=== PATIENT | female | born 1960 | race Caucasian/White ===

== ENCOUNTER 2023-06-03 21:32 | Inpatient (IN) | payer OTHER ==
[~2023-06-03 21:32] MED LIST: Iopamidol-370 76% 500 ML MDV (1 ML CHARGE) ONE
[2023-06-03 22:32] LABS: #Monocytes 1.2 thou/uL (0.11-0.59); #Neutrophils 13.5 thou/uL (1.40-6.50); %Basophils 0.2 % (0.0-1.0); %Eosinophils 0.2 % (0.0-10.0); %Lymphocytes 9.8 % (21.0-51.0); %Monocytes 7.3 % (0.0-10.0); Hematocrit 36.8 % (36.0-47.0); Hemoglobin 11.1 g/dL (12.0-16.0); Mean Corpuscular HGB CONC 30.2 g/dL (32.0-36.0); Mean Corpuscular Hemoglobin 29.4 pg (27.0-31.0); Mean Corpuscular Volume 97.6 fl (78.0-98.0); Mean Platelet Volume 9.5 fL (7.4-10.4); Platelet Count 251 10x3/uL (130-400); RBC Distribution Width 14.5 % (11.5-14.5); Red Blood Cell (RBC) Count 3.77 mill/uL (4.20-5.40); White Blood Cell (WBC) Count 16.5 10x3/uL (4.8-10.8)
[2023-06-03 22:54] LABS: ALT (SGPT) Less than 7 U/L (8-55); AST (SGOT) 9 U/L (5-34); Albumin 4.2 g/dL (3.4-4.8); Alkaline Phosphatase 87 U/L (40-110); Anion Gap 19 mmol/L (10-20); BUN (Urea Nitrogen) 20 mg/dL (9.8-20.1); Bilirubin, Total Less than 0.2 mg/dL (0.2-1.2); Calc. Creatinine Clearance 0 mL/min (70-130); Calcium 9.3 mg/dL (7.8-10.44); Carbon Dioxide 24 mmol/L (23-31); Chloride 101 mmol/L (98-107); Estimated GFR 74; Globulin 2.8 g/dL (2.4-3.5); Glucose 70 mg/dL (80-115); Lipase 16 U/L (8-78); Potassium 3.6 mmol/L (3.5-5.1); Sodium 140 mmol/L (136-145); Troponin I Less than 0.010 ng/mL (< 0.028)
[2023-06-03 23:00] LABS: SARS-CoV-2 NAA Rapid Test Not Detected (NotDetected)
[2023-06-03] MEDS ORDERED: Dextrose 10% in Water 250 ML ONE (23:56)
[2023-06-04 03:29] LABS: Bacteria/HPF None Seen HPF (None Seen); Bilirubin Negative (Negative); Blood, Urine Negative (Negative); CAUTI Indications for Culture Alt mental st,lethar; Clarity Clear (Clear); Glucose, Urine (Dipstick) 100 mg/dL (Negative); Ketone, Urine 10 mg/dL (Negative); Leukocyte Negative Leu/uL (Negative); Nitrite Negative (Negative); Protein, Urine (Dipstick) Negative (Neg-Trace); RBC/HPF 0-3 HPF (0-3); Specific Gravity, Urine 1.029 (1.002-1.036); Squamous Epithelial 0-3 HPF (0-3); Urobilinogen Normal mg/dL (Less than 2); WBC/HPF 0-3 HPF (0-3)
[2023-06-04 03:52] LABS: Urine Culture Reflex No No
[2023-06-04] MEDS ORDERED: Acetaminophen 325 MG TAB PO PRN (04:25)
[2023-06-04] MEDS ORDERED: Glucagon 1 MG/ML KIT IM PRN (04:27)
[2023-06-04] MEDS ORDERED: Dextrose 50% Abboject 50 ML SYRINGE SLOW IVP PRN (04:27)
[2023-06-04] MEDS ORDERED: Dextrose 5% in Water 1,000 ML IV PRN (04:27)
[2023-06-04] MEDS ORDERED: D5 1/2 NS w/20 mEq KCL 1,000 ML IV SCH ×2 (05:00→12:18)
[2023-06-04 07:16] VITALS: BMI 34.3
[2023-06-04] MEDS ORDERED: Furosemide 40 MG TAB PO SCH (07:30)
[2023-06-04] MEDS ORDERED: Losartan 25 MG TAB ONE (07:48)
[2023-06-04] MEDS ORDERED: Divalproex Sodium 250 MG (DR) TAB ONE (07:48)
[2023-06-04] MEDS ORDERED: Gabapentin 300 MG CAP ONE (07:48)
[2023-06-04] MEDS ORDERED: Furosemide 40 MG TAB ONE (07:48)
[2023-06-04] MEDS ORDERED: risperiDONE 1 MG TAB ONE (07:49)
[2023-06-04] MEDS ORDERED: D5 1/2 NS w/20 mEq KCL 1,000 ML ONE (07:49)
[2023-06-04 08:45] LABS: #Eosinphils 0.1 thou/uL (0.0-0.7); #Monocytes 1.2 thou/uL (0.11-0.59); #Neutrophils 7.1 thou/uL (1.40-6.50); %Basophils 0.2 % (0.0-1.0); %Eosinophils 0.9 % (0.0-10.0); %Lymphocytes 21.3 % (21.0-51.0); %Monocytes 11.3 % (0.0-10.0); Hematocrit 32.9 % (36.0-47.0); Hemoglobin 10.3 g/dL (12.0-16.0); Mean Corpuscular HGB CONC 31.3 g/dL (32.0-36.0); Mean Corpuscular Hemoglobin 29.6 pg (27.0-31.0); Mean Platelet Volume 9.7 fL (7.4-10.4); Platelet Count 281 10x3/uL (130-400); RBC Distribution Width 14.6 % (11.5-14.5); Red Blood Cell (RBC) Count 3.48 mill/uL (4.20-5.40); White Blood Cell (WBC) Count 10.7 10x3/uL (4.8-10.8)
[2023-06-04] MEDS: FLUoxetine HCl 20 MG/5 ML UDCUP PO SCH (08:45)
[2023-06-04] MEDS: Gabapentin 300 MG CAP PO SCH ×3 (08:45→21:36)
[2023-06-04] MEDS: Benztropine 1 MG TAB PO SCH ×2 (08:45→21:37)
[2023-06-04 08:49] LABS: Mean Corpuscular Volume 94.5 fl (78.0-98.0)
[2023-06-04] MEDS ORDERED: Divalproex Sodium 125 mg Sprinkle Capsule PO SCH ×2 (09:00→09:15)
[2023-06-04] MEDS ORDERED: Losartan 25 MG TAB PO SCH (09:00)
[2023-06-04] MEDS ORDERED: risperiDONE 0.25 MG TAB PO SCH (09:00)
[2023-06-04 09:09] LABS: Anion Gap 12 mmol/L (10-20); BUN (Urea Nitrogen) 14 mg/dL (9.8-20.1); Calc. Creatinine Clearance 92 mL/min (70-130); Calcium 9.2 mg/dL (7.8-10.44); Carbon Dioxide 32 mmol/L (23-31); Chloride 102 mmol/L (98-107); Estimated GFR 75; Glucose 175 mg/dL (80-115); Potassium 4.5 mmol/L (3.5-5.1); Sodium 141 mmol/L (136-145)
[2023-06-04] MEDS: Acetaminophen 500 MG TAB PO SCH ×3 (10:28→21:39)
[2023-06-04] MEDS ORDERED: Acetaminophen 500 MG TAB ONE (10:29)
[2023-06-04] MEDS: rOPINIRole HCl 0.25 MG TAB PO SCH ×2 (17:06→21:35)
[2023-06-04] MEDS: Docusate 100 MG CAP PO SCH (21:35)
[2023-06-04] MEDS: Divalproex Sodium 125 mg Sprinkle Capsule PO SCH (21:36)
[2023-06-04] MEDS: risperiDONE 1 MG TAB PO SCH (21:36)
[2023-06-04] MEDS: Melatonin 3 MG TAB PO SCH (21:36)
[2023-06-04] MEDS: Atorvastatin Calcium 10 MG TAB PO SCH (21:37)
[2023-06-05 05:14] LABS: #Eosinphils 0.2 thou/uL (0.0-0.7); #Neutrophils 4.3 thou/uL (1.40-6.50); %Basophils 0.5 % (0.0-1.0); %Eosinophils 2.5 % (0.0-10.0); %Lymphocytes 32.5 % (21.0-51.0); %Monocytes 11.7 % (0.0-10.0); %Neutrophils 52.4 % (42.0-75.0); Hematocrit 33.3 % (36.0-47.0); Hemoglobin 10.1 g/dL (12.0-16.0); Mean Corpuscular HGB CONC 30.3 g/dL (32.0-36.0); Mean Corpuscular Hemoglobin 29.3 pg (27.0-31.0); Mean Corpuscular Volume 96.5 fl (78.0-98.0); Mean Platelet Volume 9.8 fL (7.4-10.4); Platelet Count 247 10x3/uL (130-400); RBC Distribution Width 14.6 % (11.5-14.5); Red Blood Cell (RBC) Count 3.45 mill/uL (4.20-5.40); White Blood Cell (WBC) Count 8.2 10x3/uL (4.8-10.8)
[2023-06-05] MEDS: Acetaminophen 500 MG TAB PO SCH ×4 (05:44→21:20)
[2023-06-05 05:45] LABS: Anion Gap 13 mmol/L (10-20); BUN (Urea Nitrogen) 13 mg/dL (9.8-20.1); Calc. Creatinine Clearance 96 mL/min (70-130); Calcium 8.6 mg/dL (7.8-10.44); Carbon Dioxide 29 mmol/L (23-31); Chloride 104 mmol/L (98-107); Estimated GFR 80; Glucose 94 mg/dL (80-115); Potassium 4.4 mmol/L (3.5-5.1); Sodium 142 mmol/L (136-145)
[2023-06-05] MEDS: Benztropine 1 MG TAB PO SCH ×2 (10:02→20:41)
[2023-06-05] MEDS: rOPINIRole HCl 0.25 MG TAB PO SCH ×3 (10:02→20:40)
[2023-06-05] MEDS: Docusate 100 MG CAP PO SCH ×2 (10:02→20:41)
[2023-06-05] MEDS: Divalproex Sodium 125 mg Sprinkle Capsule PO SCH ×2 (10:02→20:40)
[2023-06-05] MEDS: FLUoxetine HCl 20 MG/5 ML UDCUP PO SCH (10:02)
[2023-06-05] MEDS: Gabapentin 300 MG CAP PO SCH ×3 (10:02→20:42)
[2023-06-05] MEDS ORDERED: Glucagon 1 MG/ML KIT IM PRN (17:10)
[2023-06-05] MEDS ORDERED: Dextrose 5% in Water 1,000 ML IV PRN (17:10)
[2023-06-05] MEDS ORDERED: Dextrose 50% Abboject 50 ML SYRINGE SLOW IVP PRN (17:10)
[2023-06-05] MEDS: HumaLOG 300 UNITS/3 ML VIAL SC PRN ×2 (18:26→20:43)
[2023-06-05] MEDS: Atorvastatin Calcium 10 MG TAB PO SCH (20:41)
[2023-06-05] MEDS: Melatonin 3 MG TAB PO SCH (20:41)
[2023-06-05] MEDS: risperiDONE 1 MG TAB PO SCH (20:41)
[2023-06-06] MEDS: HumaLOG 300 UNITS/3 ML VIAL SC PRN ×4 (00:06→16:47)
[2023-06-06] MEDS: Acetaminophen 500 MG TAB PO SCH ×4 (04:08→22:50)
[2023-06-06 05:03] LABS: #Eosinphils 0.2 thou/uL (0.0-0.7); #Monocytes 0.9 thou/uL (0.11-0.59); #Neutrophils 3.2 thou/uL (1.40-6.50); %Basophils 0.4 % (0.0-1.0); %Eosinophils 2.9 % (0.0-10.0); %Lymphocytes 42.6 % (21.0-51.0); %Monocytes 12.1 % (0.0-10.0); %Neutrophils 41.7 % (42.0-75.0); Hematocrit 32.2 % (36.0-47.0); Hemoglobin 10.1 g/dL (12.0-16.0); Mean Corpuscular HGB CONC 31.4 g/dL (32.0-36.0); Mean Corpuscular Hemoglobin 30.1 pg (27.0-31.0); Mean Corpuscular Volume 96.1 fl (78.0-98.0); Mean Platelet Volume 9.7 fL (7.4-10.4); Platelet Count 281 10x3/uL (130-400); RBC Distribution Width 14.4 % (11.5-14.5); Red Blood Cell (RBC) Count 3.35 mill/uL (4.20-5.40); White Blood Cell (WBC) Count 7.6 10x3/uL (4.8-10.8)
[2023-06-06 05:28] LABS: Anion Gap 15 mmol/L (10-20); BUN (Urea Nitrogen) 20 mg/dL (9.8-20.1); Calc. Creatinine Clearance 76 mL/min (70-130); Carbon Dioxide 32 mmol/L (23-31); Chloride 100 mmol/L (98-107); Estimated GFR 60; Glucose 148 mg/dL (80-115); Sodium 143 mmol/L (136-145)
[2023-06-06] MEDS: Docusate 100 MG CAP PO SCH ×2 (08:36→22:52)
[2023-06-06] MEDS: Benztropine 1 MG TAB PO SCH ×2 (08:37→22:49)
[2023-06-06] MEDS: Divalproex Sodium 125 mg Sprinkle Capsule PO SCH ×2 (08:37→22:49)
[2023-06-06] MEDS: rOPINIRole HCl 0.25 MG TAB PO SCH ×3 (08:37→22:54)
[2023-06-06] MEDS: Gabapentin 300 MG CAP PO SCH ×3 (08:37→22:52)
[2023-06-06] MEDS: FLUoxetine HCl 20 MG/5 ML UDCUP PO SCH (08:38)
[2023-06-06] MEDS: Ondansetron ODT 4 MG TAB PO PRN ×2 (09:32→22:49)
[2023-06-06] MEDS: risperiDONE 1 MG TAB PO SCH (22:49)
[2023-06-06] MEDS: Melatonin 3 MG TAB PO SCH (22:50)
[2023-06-06] MEDS: Atorvastatin Calcium 10 MG TAB PO SCH (22:52)
[2023-06-07] MEDS: HumaLOG 300 UNITS/3 ML VIAL SC PRN ×5 (01:14→17:44)
[2023-06-07] MEDS: Acetaminophen 500 MG TAB PO SCH ×4 (04:31→21:29)
[2023-06-07 05:20] LABS: #Eosinphils 0.2 thou/uL (0.0-0.7); #Monocytes 0.9 thou/uL (0.11-0.59); #Neutrophils 4.7 thou/uL (1.40-6.50); %Basophils 0.5 % (0.0-1.0); %Eosinophils 1.8 % (0.0-10.0); %Lymphocytes 31.5 % (21.0-51.0); %Monocytes 10.7 % (0.0-10.0); %Neutrophils 55.3 % (42.0-75.0); Hematocrit 33.2 % (36.0-47.0); Hemoglobin 10.2 g/dL (12.0-16.0); Mean Corpuscular HGB CONC 30.7 g/dL (32.0-36.0); Mean Corpuscular Hemoglobin 29.5 pg (27.0-31.0); Mean Platelet Volume 9.8 fL (7.4-10.4); Platelet Count 280 10x3/uL (130-400); RBC Distribution Width 14.5 % (11.5-14.5); Red Blood Cell (RBC) Count 3.46 mill/uL (4.20-5.40); White Blood Cell (WBC) Count 8.6 10x3/uL (4.8-10.8)
[2023-06-07 06:09] LABS: Anion Gap 14 mmol/L (10-20); BUN (Urea Nitrogen) 21 mg/dL (9.8-20.1); Calc. Creatinine Clearance 79 mL/min (70-130); Calcium 9.5 mg/dL (7.8-10.44); Carbon Dioxide 34 mmol/L (23-31); Chloride 97 mmol/L (98-107); Estimated GFR 63; Glucose 195 mg/dL (80-115); Potassium 4.2 mmol/L (3.5-5.1); Sodium 141 mmol/L (136-145)
[2023-06-07] MEDS: Divalproex Sodium 125 mg Sprinkle Capsule PO SCH ×2 (08:45→21:28)
[2023-06-07] MEDS: Benztropine 1 MG TAB PO SCH ×2 (08:46→21:30)
[2023-06-07] MEDS: rOPINIRole HCl 0.25 MG TAB PO SCH ×3 (08:46→21:31)
[2023-06-07] MEDS: Docusate 100 MG CAP PO SCH ×2 (08:46→21:29)
[2023-06-07] MEDS: Gabapentin 300 MG CAP PO SCH ×3 (08:46→15:05)
[2023-06-07] MEDS: FLUoxetine HCl 20 MG/5 ML UDCUP PO SCH (08:46)
[2023-06-07] MEDS ORDERED: Bisacodyl 10 MG SUPP PR PRN (15:10)
[2023-06-07] MEDS ORDERED: Polyethylene Glycol 3350 17 GM Packet PO PRN (15:10)
[2023-06-07] MEDS: risperiDONE 1 MG TAB PO SCH (21:29)
[2023-06-07] MEDS: Melatonin 3 MG TAB PO SCH (21:30)
[2023-06-07] MEDS: Atorvastatin Calcium 10 MG TAB PO SCH (21:30)
[2023-06-07] MEDS: Gabapentin 100 MG CAP PO SCH (21:30)
[2023-06-08] MEDS: HumaLOG 300 UNITS/3 ML VIAL SC PRN ×5 (01:09→21:39)
[2023-06-08] MEDS: Acetaminophen 500 MG TAB PO SCH ×4 (03:59→21:35)
[2023-06-08 06:11] LABS: #Eosinphils 0.1 thou/uL (0.0-0.7); %Basophils 0.3 % (0.0-1.0); %Eosinophils 1.1 % (0.0-10.0); %Lymphocytes 25.7 % (21.0-51.0); %Monocytes 9.4 % (0.0-10.0); %Neutrophils 63.3 % (42.0-75.0); Hematocrit 32.2 % (36.0-47.0); Mean Corpuscular HGB CONC 31.1 g/dL (32.0-36.0); Mean Corpuscular Hemoglobin 29.9 pg (27.0-31.0); Mean Corpuscular Volume 96.1 fl (78.0-98.0); Platelet Count 274 10x3/uL (130-400); RBC Distribution Width 14.4 % (11.5-14.5); Red Blood Cell (RBC) Count 3.35 mill/uL (4.20-5.40)
[2023-06-08] MEDS: Gabapentin 100 MG CAP PO SCH ×3 (09:55→21:38)
[2023-06-08] MEDS: rOPINIRole HCl 0.25 MG TAB PO SCH ×3 (09:55→21:34)
[2023-06-08] MEDS: Benztropine 1 MG TAB PO SCH ×2 (09:56→21:37)
[2023-06-08] MEDS: Docusate 100 MG CAP PO SCH ×2 (09:56→21:39)
[2023-06-08] MEDS: Divalproex Sodium 125 mg Sprinkle Capsule PO SCH ×2 (09:56→21:35)
[2023-06-08] MEDS: FLUoxetine HCl 20 MG/5 ML UDCUP PO SCH (10:02)
[2023-06-08] MEDS: Alogliptin 6.25 MG TAB PO SCH (18:23)
[2023-06-08] MEDS: risperiDONE 1 MG TAB PO SCH (21:37)
[2023-06-08] MEDS: Melatonin 3 MG TAB PO SCH (21:37)
[2023-06-08] MEDS: Atorvastatin Calcium 10 MG TAB PO SCH (21:38)
[2023-06-09] MEDS: Acetaminophen 500 MG TAB PO SCH ×3 (06:06→16:26)
[2023-06-09] MEDS: HumaLOG 300 UNITS/3 ML VIAL SC PRN ×3 (06:14→19:41)
[2023-06-09 07:20] LABS: #Eosinphils 0.1 thou/uL (0.0-0.7); #Neutrophils 7.5 thou/uL (1.40-6.50); %Basophils 0.4 % (0.0-1.0); %Lymphocytes 19.6 % (21.0-51.0); %Monocytes 8.9 % (0.0-10.0); %Neutrophils 69.8 % (42.0-75.0); Hematocrit 32.8 % (36.0-47.0); Hemoglobin 10.4 g/dL (12.0-16.0); Mean Corpuscular HGB CONC 31.7 g/dL (32.0-36.0); Mean Corpuscular Hemoglobin 30.3 pg (27.0-31.0); Mean Corpuscular Volume 95.6 fl (78.0-98.0); Mean Platelet Volume 9.7 fL (7.4-10.4); Platelet Count 291 10x3/uL (130-400); RBC Distribution Width 14.6 % (11.5-14.5); Red Blood Cell (RBC) Count 3.43 mill/uL (4.20-5.40); White Blood Cell (WBC) Count 10.7 10x3/uL (4.8-10.8)
[2023-06-09 07:44] LABS: Anion Gap 16 mmol/L (10-20); BUN (Urea Nitrogen) 22 mg/dL (9.8-20.1); Calc. Creatinine Clearance 81 mL/min (70-130); Calcium 9.1 mg/dL (7.8-10.44); Carbon Dioxide 32 mmol/L (23-31); Chloride 97 mmol/L (98-107); Estimated GFR 64; Glucose 265 mg/dL (80-115); Potassium 3.6 mmol/L (3.5-5.1); Sodium 141 mmol/L (136-145)
[2023-06-09] MEDS ORDERED: metFORMIN 500 MG TAB PO SCH ×2 (08:00→09:00)
[2023-06-09] MEDS ORDERED: Insulin Glargine 30 UNITS/0.3 ML VIAL SC SCH (09:00)
[2023-06-09] MEDS ORDERED: Non-Formulary Item 1 EACH (Metformin Hcl [Metformin Hcl] 1,000 MG Tablet) PO SCH (09:00)
[2023-06-09] MEDS: Benztropine 1 MG TAB PO SCH (09:56)
[2023-06-09] MEDS: FLUoxetine HCl 20 MG/5 ML UDCUP PO SCH (09:57)
[2023-06-09] MEDS: Divalproex Sodium 125 mg Sprinkle Capsule PO SCH (09:57)
[2023-06-09] MEDS: rOPINIRole HCl 0.25 MG TAB PO SCH ×2 (09:57→16:24)
[2023-06-09] MEDS: Docusate 100 MG CAP PO SCH (09:57)
[2023-06-09] MEDS: Gabapentin 100 MG CAP PO SCH ×2 (11:39→16:24)
[2023-06-09] MEDS: Alogliptin 6.25 MG TAB PO SCH (17:32)
[2023-06-09 19:27] VITALS: BP 111/67; TEMP 99.1
== END 2023-06-09 20:08 | DRG 918 ==
LOC: ERS 21:32 → ERHOLD 06-04 03:06 → 2SE 06-04 03:38
PROVIDERS: ADMIT Family Medicine; ATTEND Internal Medicine
PROC: 0HQ1XZZ Repair Face Skin, External Approach (ICD-10-PCS; principal; 2023-06-04)
DX: T38.3X1A Poisoning by insulin and oral hypoglycemic [antidiabetic] drugs, accidental (unintentional), initial encounter (principal); S22.32XA Fracture of one rib, left side, initial encounter for closed fracture; N18.9 Chronic kidney disease, unspecified; I12.9 Hypertensive chronic kidney disease with stage 1 through stage 4 chronic kidney disease, or unspecified chronic kidney disease; E11.22 Type 2 diabetes mellitus with diabetic chronic kidney disease; F31.9 Bipolar disorder, unspecified; F20.9 Schizophrenia, unspecified; Z20.822 Contact with and (suspected) exposure to COVID-19; D72.829 Elevated white blood cell count, unspecified; S05.11XA Contusion of eyeball and orbital tissues, right eye, initial encounter; W18.30XA Fall on same level, unspecified, initial encounter; G25.81 Restless legs syndrome; E78.5 Hyperlipidemia, unspecified; S09.90XA Unspecified injury of head, initial encounter; E04.1 Nontoxic single thyroid nodule; F03.90 Unspecified dementia, unspecified severity, without behavioral disturbance, psychotic disturbance, mood disturbance, and anxiety; E11.42 Type 2 diabetes mellitus with diabetic polyneuropathy; K59.00 Constipation, unspecified; J43.9 Emphysema, unspecified; Y92.042 Bedroom in boarding-house as the place of occurrence of the external cause; Z79.4 Long term (current) use of insulin; Z79.899 Other long term (current) drug therapy
CPT/HCPCS: 36415; 36416; 70450; 70486; 71260; 72125; 74177; 80048; 80053; 81001; 83690; 83880; 84484; 85025; 93005; J1815; J3480; Q0162; Q9967

== ENCOUNTER 2023-07-03 18:33 | Emergency (ER) | payer OTHER ==
[2023-07-03 19:30] LABS: #Eosinphils 0.1 thou/uL (0.0-0.7); #Monocytes 1.3 thou/uL (0.11-0.59); #Neutrophils 6.6 thou/uL (1.40-6.50); %Basophils 0.2 % (0.0-1.0); %Eosinophils 1.2 % (0.0-10.0); %Lymphocytes 32.2 % (21.0-51.0); %Monocytes 10.7 % (0.0-10.0); %Neutrophils 55.4 % (42.0-75.0); Hematocrit 31.7 % (36.0-47.0); Hemoglobin 9.8 g/dL (12.0-16.0); Mean Corpuscular HGB CONC 30.9 g/dL (32.0-36.0); Mean Corpuscular Volume 96.9 fl (78.0-98.0); Mean Platelet Volume 10.3 fL (7.4-10.4); Platelet Count 221 10x3/uL (130-400); RBC Distribution Width 14.2 % (11.5-14.5); Red Blood Cell (RBC) Count 3.27 mill/uL (4.20-5.40); White Blood Cell (WBC) Count 11.9 10x3/uL (4.8-10.8)
[2023-07-03 19:38] LABS: Bacteria/HPF None Seen HPF (None Seen); Bilirubin Negative (Negative); Blood, Urine Negative (Negative); CAUTI Indications for Culture Alt mental st,lethar; Clarity Clear (Clear); Glucose, Urine (Dipstick) 150 mg/dL (Negative); Ketone, Urine Negative (Negative); Leukocyte Negative Leu/uL (Negative); Nitrite Negative (Negative); Protein, Urine (Dipstick) Negative (Neg-Trace); RBC/HPF None Seen HPF (0-3); Specific Gravity, Urine 1.009 (1.002-1.036); Squamous Epithelial 0-3 HPF (0-3); Urobilinogen Normal mg/dL (Less than 2); WBC/HPF 0-3 HPF (0-3)
[2023-07-03 19:39] LABS: Urine Culture Reflex No No
[2023-07-03 19:44] LABS: Acetaminophen Less than 10 mcg/mL (10.0-30.0); Alcohol Less than 10.0 mg/dL (Less than 10); Salicylate Less than 8.0 mg/dL (15.0-30.0)
[2023-07-03 19:45] LABS: Amphetamine Not Detected (NotDetected); Barbiturates Screen Not Detected (NotDetected); Benzodiazepine Screen Not Detected (NotDetected); Cocaine Metabolite Screen Not Detected (NotDetected); Methadone Not Detected (NotDetected); Methamphetamine Not Detected (NotDetected); Opiate Screen Not Detected (NotDetected); Oxycodone Screen Not Detected (NotDetected); Phencyclidine (PCP) Not Detected (NotDetected); THC/Cannabinoid Screen Not Detected (NotDetected); Tricyclic Screen Not Detected (NotDetected)
[2023-07-03 19:45] LABS: ALT (SGPT) Less than 7 U/L (8-55); AST (SGOT) 6 U/L (5-34); Albumin 3.6 g/dL (3.4-4.8); Alkaline Phosphatase 80 U/L (40-110); Anion Gap 14 mmol/L (10-20); BUN (Urea Nitrogen) 20 mg/dL (9.8-20.1); Bilirubin, Total 0.2 mg/dL (0.2-1.2); Calc. Creatinine Clearance 0 mL/min (70-130); Calcium 8.7 mg/dL (7.8-10.44); Carbon Dioxide 31 mmol/L (23-31); Chloride 99 mmol/L (98-107); Estimated GFR 54; Globulin 2.5 g/dL (2.4-3.5); Glucose 142 mg/dL (80-115); Potassium 3.5 mmol/L (3.5-5.1); Protein, Total 6.1 g/dL (5.8-8.1); Sodium 140 mmol/L (136-145)
[2023-07-03 19:48] LABS: Troponin I Less than 0.010 ng/mL (< 0.028)
[2023-07-03 22:45] LABS: Lactic Acid 1.1 mmol/L (0.5-2.2)
== END 2023-07-04 06:26 | disposition short-term general hospital (02) ==
LOC: ERS 18:33
DX: R41.82 Altered mental status, unspecified (principal); R53.1 Weakness; E11.40 Type 2 diabetes mellitus with diabetic neuropathy, unspecified; I12.9 Hypertensive chronic kidney disease with stage 1 through stage 4 chronic kidney disease, or unspecified chronic kidney disease; E11.22 Type 2 diabetes mellitus with diabetic chronic kidney disease; N18.30 Chronic kidney disease, stage 3 unspecified; Z79.84 Long term (current) use of oral hypoglycemic drugs; Z79.899 Other long term (current) drug therapy
CPT/HCPCS: 36415; 36416; 51701; 70450; 71045; 80053; 80306; 80307; 81001; 82140; 83605; 84484; 85025; 87040; 93005